=== PATIENT | male | born 1990 | race Caucasian/White ===

== ENCOUNTER 2018-04-02 19:12 | Emergency (ER) | payer MEDICAID, OTHER ==
[~2018-04-02] VITALS: Ht 182.9 cm; Wt 127.0 kg
[2018-04-02] MEDS ORDERED: HYDROcodone-ACET 5/325MG TAB PO ONE (22:00)
[2018-04-02 22:10] VITALS: BP 121/77
== END 2018-04-02 22:34 | disposition home or self-care (01) ==
LOC: EDBD 19:12 → ER 19:19
DX: S42.001A Fracture of unspecified part of right clavicle, initial encounter for closed fracture (principal); R51 Headache; V29.9XXA Motorcycle rider (driver) (passenger) injured in unspecified traffic accident, initial encounter; Y93.I9 Activity, other involving external motion; Y92.488 Other paved roadways as the place of occurrence of the external cause; Y99.8 Other external cause status
CPT/HCPCS: 70450; 72125; 73030